=== PATIENT | female | born 1955 | race Caucasian/White ===

== ENCOUNTER 2023-05-26 08:01 | Emergency (ER) | payer MEDICARE ==
[~2023-05-26] VITALS: Ht 157.5 cm; Wt 56.8 kg
[2023-05-26 08:02] VITALS: BP 148/70; PULSE 114; RESP 18; TEMP 98
[2023-05-26] MEDS ORDERED: INSLAN SQ (08:07)
[2023-05-26] MEDS ORDERED: METF-1211 PO (08:07)
[2023-05-26] MEDS ORDERED: LIDOCAINE 5% TRANSDERMAL PATCH TD ONE (08:30)
[2023-05-26] MEDS ORDERED: METHOCARBAMOL 500 MG TABLET PO ONE (08:30)
[2023-05-26] MEDS ORDERED: KETOROLAC TROMETHAMINE 60 MG/2 ML VIAL IM ONE (08:30)
[2023-05-26] MEDS ORDERED: LIDO1ADH23 TP (08:32)
== END 2023-05-26 08:43 | disposition home or self-care (01) ==
LOC: EMS 08:05
DX: M54.50 Low back pain, unspecified (principal); E11.9 Type 2 diabetes mellitus without complications; Z90.710 Acquired absence of both cervix and uterus; Z98.890 Other specified postprocedural states
CPT/HCPCS: 99283; 96372; J1885; 82962